=== PATIENT | male | born 1995 | race Caucasian/White ===

== ENCOUNTER 2019-10-03 22:47 | Emergency (ER) | payer OTHER, SELFPAY ==
[2019-10-03 22:55] VITALS: BP 134/75; PULSE 94; RESP 16; TEMP 36.2; O2SAT 97; BMI 29.2
[2019-10-03] MEDS: TET,DIPH,PERTUSS(ACELL),VAC/PF 0.5 ML SYRINGE IM (23:06)
--- NOTE | 2019-10-03 23:08 | ED.WOUNDLAC ---
HPI - Wound/Laceration General Chief Complaint: Wound/Laceration Stated Complaint: laceration to left forearm at work Time Seen by Provider: 10/03/19 23:05 Source: patient Mode of arrival: Ambulatory Limitations: no limitations History of Present Illness HPI narrative: 23-year-old male here for evaluation a cut to his left arm. Patient states that he was at work opening some boxes when he cut his left arm with a knife. Related Data Allergies Allergy/AdvReac Type Severity Reaction Status Date / Time No Known Drug Allergies Allergy Verified 10/03/19 22:55 Review of Systems Musculoskeletal Musculoskeletal: Denies muscle weakness, Denies numbness and Denies tingling Integumentary/Breasts Comments: Cut to left arm Neurologic Neurologic: Denies numbness and Denies tingling Hematologic/Lymphatic Hematologic/Lymphatic: Denies easy bleeding and Denies easy bruising Patient History Medical History Patient denies medical problems (Acute) Social History Smoking Status: Never smoker Smoking Status: Never smoker Substance Use Type: does not use Exam Initial Vital Signs Initial Vital Signs: Vital Signs Temperature 97.1 F L 10/03/19 22:55 Pulse Rate 94 H 10/03/19 22:55 Respiratory Rate 16 10/03/19 22:55 Blood Pressure 134/75 10/03/19 22:55 Pulse Oximetry 97 10/03/19 22:55 Cardio Pulses: radial pulses present on the left Skin Other: 1 cm laceration left forearm Neuro General: alert and awake Sensory Exam: no sensory deficits noted Extrem General: normal to inspection and capillary refill normal Procedures Laceration Repair Laceration 1: Site: upper extremity Side (If applicable): left Size (cm): 1 Description: linear Depth: simple, single layer Local Anesthetic: lidocaine 1% Amount of anesthesia used (mL): 1 Pre-repair: wound explored, irrigated extensively and deep structures intact Skin layer closed with: nylon Size (cm): 4-0 Number of sutures: 2 Technique: simple, interrupted Course Orders Ordered: Discontinued Medications Diphtheria/Tetanus/Acell Pertussis (Adacel) 0.5 ml IM .ONCE ONE Stop: 10/03/19 22:59 Last Admin: 10/03/19 23:06 Dose: 0.5 ml Documented by: SANAZ Lidocaine HCl (Xylocaine 1% (Pf)) 2 ml INJ NOW ONE Stop: 10/03/19 23:09 Last Admin: 10/03/19 23:18 Dose: 2 ml Documented by: SANAZ Vital Signs Vital signs: Vital Signs - 8 hr 10/03/19 22:55 Temperature 97.1 F L Pulse Rate 94 H Respiratory Rate 16 Blood Pressure 134/75 Pulse Oximetry 97 MDM - Wound/Laceration MDM Narrative Medical decision making narrative: Irrigated. Closed as described above, tetanus updated, covered with bandage. Patient was given return precautions and follow-up instructions. He expressed understanding and agreement with plan. Discharge Plan Departure Patient Disposition: Home Clinical Impression: Laceration Discharge Date/Time: 10/03/19 23:32 Instructions: DI for Laceration Repair Activity Restrictions/Additional Instructions: Keep the area covered with the bandages you were provided. The stitches do need to be removed in 7-10 days. Return to the emergency department for any new or worsening symptoms
[2019-10-03] MEDS: LIDOCAINE 1% (PF) 2 ML INJ (23:18)
== END 2019-10-03 23:32 | disposition home or self-care (01) ==
PROVIDERS: Emergency Provider Emergency Medicine
DX: S41.112A Laceration without foreign body of left upper arm, initial encounter (principal); W26.0XXA Contact with knife, initial encounter; Z23 Encounter for immunization; Y99.0 Civilian activity done for income or pay
CPT/HCPCS: 12001; 90471; 99283; 90715

== ENCOUNTER 2019-10-14 01:17 | Emergency (ER) | payer OTHER, SELFPAY ==
--- NOTE | 2019-10-14 06:47 | ED.RECABL ---
HPI - Recheck/Abnormal Lab/Rx General Chief Complaint: Recheck/Abnormal Lab/Rx Stated Complaint: here toget stitches removed, left forearm Source: patient Mode of arrival: Ambulatory Limitations: no limitations History of Present Illness HPI narrative: The patient sustained a laceration to his left forearm last week at work. He was evaluated here, 2 sutures were placed. The wound is healing well, there has been no redness or discharge. He is here requesting suture removal. Related Data Allergies Allergy/AdvReac Type Severity Reaction Status Date / Time No Known Drug Allergies Allergy Verified 10/03/19 22:55 Review of Systems Constitutional Constitutional: Denies fever(s) Musculoskeletal Comments: Recent left arm laceration Integumentary/Breasts Comments: Recent laceration, no other injuries Patient History Medical History Patient denies medical problems (Acute) Social History Smoking Status: Never smoker Smoking Status: Never smoker Substance Use Type: does not use Exam Skin Other: Healing 1.5 cm laceration left forearm. No infection. Neuro Sensory Exam: no sensory deficits noted Course Course Course Narrative: The sutures removed by the patient's nurse. Discharge Plan Departure Patient Disposition: Home Clinical Impression: Visit for suture removal Discharge Date/Time: 10/14/19 02:06 Activity Restrictions/Additional Instructions: Verbal instructions were given for wound care.
== END 2019-10-14 02:06 | disposition home or self-care (01) ==
PROVIDERS: Emergency Provider Emergency Medicine
DX: Z48.02 Encounter for removal of sutures (principal)
CPT/HCPCS: 99281